=== PATIENT | male | born 1945 | race Caucasian/White ===

== ENCOUNTER 2023-03-16 06:56 | Inpatient (IN) | payer MEDICARE, BC ==
[2023-03-11 14:31] LABS: BASOPHILS # (AUTO) 0.1 X10'3 (0-0.2); BASOPHILS % (AUTO) 0.6 % (0-1); EOSINOPHILS # (AUTO) 0.1 X10'3 (0-0.9); LYMPHOCYTES # (AUTO) 2.1 X10'3 (1.1-4.8); LYMPHOCYTES % (AUTO) 23.3 % (21-51); MEAN CORPUSCULAR HGB CONC 34.3 g/dL (33.0-36.5); MEAN CORPUSCULAR VOLUME 96.1 FL (78-98); MEAN PLATELET VOLUME 8.1 FL (7.4-10.4); MONOCYTES # (AUTO) 0.8 X10'3 (0-0.9); MONOCYTES % (AUTO) 8.3 % (2-12); NEUTROPHILS # (AUTO) 6.1 X10'3 (1.8-7.7); NEUTROPHILS % (AUTO) 66.8 % (42-75); PRE OP HEMATOCRIT 41.9 % (42.0-52.0); PRE OP HEMOGLOBIN 14.4 g/dL (14.0-17.9); PRE OP PLATELET COUNT 234 X10'3 (140-440); PRE OP WHITE BLOOD COUNT 9.1 10'3 (4.8-10.8); RED BLOOD COUNT 4.36 X10'6 (4.70-6.10); RED CELL DISTRIBUTION WIDTH 14.1 % (11.5-14.5)
[2023-03-11 14:42] LABS: ALBUMIN 3.3 G/DL (3.4-5.0); ALKALINE PHOSPHATASE 71 IU/L (46-116); BLOOD UREA NITROGEN 18 MG/DL (7-18); BUN/CREATININE RATIO 13.1 (10.0-20.0); CALCIUM 8.7 MG/DL (8.5-10.1); CHLORIDE 105 MMOL/L (99-107); CREATININE 1.37 MG/DL (0.60-1.10); PRE OP ALT 11 U/L (30-65); PRE OP ANION GAP 5 (8-16); PRE OP AST 24 U/L (10-37); PRE OP BILIRUB, TOTAL 0.6 MG/DL (0.0-1.0); PRE OP GLUCOSE 88 MG/DL (70-104); PRE OP POTASSIUM 4.1 MMOL/L (3.4-5.1); PRE OP SODIUM 140 MMOL/L (135-145); TOTAL CARBON DIOXIDE 30.2 MMOL/L (24-32); TOTAL PROTEIN 6.5 G/DL (6.4-8.2); eGFR 51 ML/MIN
[~2023-03-16] VITALS: Ht 175.3 cm; Wt 86.3 kg
[2023-03-16] VITALS (21 sets, daily range): BP systolic 94–131; BP diastolic 53–72; PULSE 52–100; RESP 13–18; TEMP 98–98.4; O2SAT 91–98
[~2023-03-16 06:56] MED LIST: ASCO-139 PO; ASPI81TA52 PO; ATOR10TA87 PO; CITA20TA28 PO; GING550C4; NAPR220T67 PO; OMEP20CA15 PO; ZOLP5TAB8 PO
[2023-03-16] MEDS ORDERED: tranexamic acid 650mg tablet PO ONE (07:15)
[2023-03-16] MEDS ORDERED: ringers solution, lacted 1,000 ML IV SCH ×2 (07:15→07:25)
[2023-03-16] MEDS ORDERED: famotidine 20mg tablet PO ONE (07:15)
[2023-03-16] MEDS ORDERED: vancomycin 1,500 MG in NS 300ml IV soln IV ONE (07:15)
[2023-03-16] MEDS ORDERED: ondansetron/PF 4mg/2ml inj IV PRN ×2 (07:25→11:30)
[2023-03-16] MEDS ORDERED: morphine 4 MG/ML inj SYRINge IV PRN (07:25)
[2023-03-16] MEDS ORDERED: ROPIVAcaine 0.2% (10 MG/5 ML) BOLUS INJECTION INTERSCALE PRN (07:25)
[2023-03-16] MEDS ORDERED: hydrALAZINE 20mg/ml inj. IV PRN (07:25)
[2023-03-16] MEDS ORDERED: labetalol 20mg/4ml (5mg/ml) syringe IV PRN (07:25)
[2023-03-16] MEDS ORDERED: ROPIVAcaine 0.2%/PF PUMP/bolus 545 ML INTERSCALE SCH (07:25)
[2023-03-16] MEDS ORDERED: fentaNYL/PF 50MCG/1 ML 2ML syringe IV PRN ×2 (07:25)
[2023-03-16] MEDS ORDERED: morphine 2 MG/ML inj. syringe IV PRN (07:25)
[2023-03-16] MEDS ORDERED: cefazolin 2gm/D5W 100mL 100 ML IV ONE (07:30)
--- NOTE | 2023-03-16 08:30 | NUR ---
PT STATED HE BATHED THE LAST 5 DAYS AND USED HIS BACTROBAN PER TOTAL JOINT PROTOCOL, READ HIS JOINT REPLACEMENT BOOKLET AND DENIED ANY DECREASED SENSATION TO LEFT ARM, RADIAL PULSE 2(+) PALPATION. Addendum: 03/16/23 at 1335 by Elizabeth Richards RN Amended: Links added.
[2023-03-16] MEDS ORDERED: ROPIVAcaine 0.5% (5mg/ml) 30ml vial IJ ONE (09:00)
[2023-03-16] MEDS ORDERED: propofol inj 20 ML IV ONE (09:23)
[2023-03-16] MEDS ORDERED: midazolam 1 mg/ML 2ml injection ONE (09:23)
[2023-03-16] MEDS ORDERED: fentaNYL/PF 50MCG/1 ML 2ML syringe ONE (09:23)
[2023-03-16] MEDS ORDERED: ondansetron/PF 4mg/2ml inj ONE (09:24)
[2023-03-16] MEDS ORDERED: ROPIVAcaine 0.5% (5mg/ml) 30ml vial ONE ×2 (09:24→10:33)
[2023-03-16] MEDS ORDERED: LIDOcaine 2% (20mg/ml) 5ml vial ONE (09:24)
[2023-03-16] MEDS ORDERED: sevoflurane 250ml liquid IH ONE (09:25)
[2023-03-16] MEDS ORDERED: dexamethasone sod phosphate 10mg/ml inj ONE (09:25)
[2023-03-16] MEDS ORDERED: ePHEDrine 50MG/ML INJ. ONE (09:25)
--- NOTE | 2023-03-16 11:25 | NUR ---
Received from OR via BED, accompanied by Anesthesiologist and report given by Anesthesiologist. PATIENT WAKING UP, NO S/S OF PAIN, V/S WNL, SCD ON, 18G TO RUE, drsg to LEFT shoulder-CDI with SLING
[2023-03-16] MEDS ORDERED: HYDROmorphone inj. 0.5 MG/0.5 ML DISP.SYRIN IV PRN (11:30)
[2023-03-16] MEDS ORDERED: naloxone 0.4 mg/ml inj IV PRN (11:30)
[2023-03-16] MEDS ORDERED: acetaminophen 325mg tablet PO PRN (11:30)
[2023-03-16] MEDS ORDERED: oxyCODONE IR 5mg (immed. release) tablet PO PRN ×2 (11:30)
[2023-03-16] MEDS ORDERED: bisacodyl 10mg suppository rectal RC PRN (11:30)
[2023-03-16] MEDS: potassium cl 20mEq in 1/2 NS 1,000 ML IV SCH ×2 (11:30→21:29)
[2023-03-16] MEDS ORDERED: magnesium hydroxide 30ml (MOM) UD suspension PO PRN (11:30)
[2023-03-16] MEDS ORDERED: diphenhydrAMINE 25mg capsule PO PRN ×2 (11:30)
[2023-03-16] MEDS ORDERED: HYDROmorphone 1 mg/ml syringe IV PRN (11:30)
[2023-03-16] MEDS ORDERED: zolpidem 5mg tablet PO PRN (11:30)
[2023-03-16] MEDS ORDERED: HYDROcodone/acetaminophen 10/325mg tab PO PRN ×2 (11:30)
--- NOTE | 2023-03-16 16:05 | NUR ---
PATIENT A&OX4, DENIES PAIN, V/S WNL,SCD ON, 18G TO RUE, drsg to LEFT shoulder-CDI with SLING ON. PATIENT TAKEN TO 4021B WITH ALL BELONGINGS AND HOOKED UP TO MONITORS IN ROOM AND REPORT GIVEN TO GETTER WELDER WHO HAS TAKEN OVER PATIENT CARE. ON Q AT 2ML/HR.
--- NOTE | 2023-03-16 16:10 | NUR ---
Patient in room [facility]TH[facility] 4021. I have received report from Mina ESCOBAR and had the opportunity to ask questions and assume patient care.
[2023-03-16] MEDS: ceFAZolin/D5W- 1GM premix 50 ML IV SCH (17:08)
[2023-03-16] MEDS: acetaminophen 325mg tablet PO SCH ×2 (17:13→21:34)
--- NOTE | 2023-03-16 18:25 | NUR ---
Problems reprioritized. Patient report given, questions answered & plan of care reviewed with Paula ESCOBAR.
--- NOTE | 2023-03-16 18:35 | NUR ---
Patient in room [facility]TH[facility] 4021. I have received report from Mookie ESCOBAR and had the opportunity to ask questions and assume patient care.
[2023-03-16] MEDS ORDERED: vancomycin/NS 1 GM ADD-VANTAGE 250 ML IV SCH (20:00)
[2023-03-16] MEDS ORDERED: sennosides 8.6mg tablet PO SCH (21:00)
[2023-03-17] MEDS: ceFAZolin/D5W- 1GM premix 50 ML IV SCH (01:07)
[2023-03-17] MEDS: acetaminophen 325mg tablet PO SCH ×2 (01:10→10:49)
[2023-03-17 02:00] VITALS: BP 104/61; PULSE 71; RESP 16; TEMP 97.5; O2SAT 92; O2SAT 98
[2023-03-17] MEDS: potassium cl 20mEq in 1/2 NS 1,000 ML IV SCH ×2 (03:30→05:16)
[2023-03-17 06:00] VITALS: BP 108/57; PULSE 58; RESP 18; TEMP 97.5; O2SAT 97
--- NOTE | 2023-03-17 06:30 | NUR ---
Problems reprioritized. Patient report given, questions answered & plan of care reviewed with Tony ESCOBAR.
[2023-03-17 07:10] LABS: BASOPHILS % (AUTO) 0.2 % (0-1); EOSINOPHILS % (AUTO) 0 % (0-6); HEMATOCRIT 37.9 % (42.0-52.0); HEMOGLOBIN 12.9 g/dl (14.0-17.9); LYMPHOCYTES # (AUTO) 1.3 X10'3 (1.1-4.8); LYMPHOCYTES % (AUTO) 9.1 % (21-51); MEAN CORPUSCULAR HEMOGLOBIN 32.9 PG (27.0-31.0); MEAN CORPUSCULAR VOLUME 96.5 FL (78-98); MEAN PLATELET VOLUME 8.5 FL (7.4-10.4); MONOCYTES # (AUTO) 0.9 X10'3 (0-0.9); MONOCYTES % (AUTO) 6.4 % (2-12); NEUTROPHILS # (AUTO) 11.7 X10'3 (1.8-7.7); NEUTROPHILS % (AUTO) 84.3 % (42-75); PLATELET COUNT 192 X10'3 (140-440); RED BLOOD COUNT 3.92 X10'6 (4.70-6.10); WHITE BLOOD COUNT 13.8 X10'3 (4.5-11.0)
[2023-03-17 07:11] LABS: ANION GAP 8 (8-16); CHLORIDE 106 MMOL/L (99-107); POTASSIUM 4.1 MMOL/L (3.5-5.1); SODIUM 139 MMOL/L (135-145)
--- NOTE | 2023-03-17 07:28 | NUR ---
Patient in room [facility]TH[facility] 4021. I have received report from IVANIA ESCOBAR and had the opportunity to ask questions and assume patient care.
[2023-03-17 08:00] VITALS: RESP 15; O2SAT 93
[2023-03-17] MEDS ORDERED: atorvastatin 10mg tablet PO SCH (08:00)
[2023-03-17] MEDS ORDERED: citalopram 20mg tablet PO SCH (08:00)
[2023-03-17] MEDS ORDERED: ascorbic acid 500mg tablet PO SCH (08:00)
[2023-03-17] MEDS ORDERED: pantoprazole 40mg Tablet.DR PO SCH (08:00)
[2023-03-17] MEDS ORDERED: aspirin 325mg tablet PO SCH (08:30)
[2023-03-17 10:00] VITALS: BP 120/67; PULSE 66; RESP 20; TEMP 97.7; O2SAT 93
--- NOTE | 2023-03-17 13:09 | NUR ---
pt is stable for dc, all dc info went over and signed, iv is dc canula intact, all belongings taken with pt, dressing changed per md, no meds in pharmacy, on q ball is full and pt educated on all dc info. pt was wheeled down to the lobby and left with daughter.
--- NOTE | 2023-03-17 16:41 | NUR ---
Joint surgery consult: Pt s/p L shoulder surgery this admit per EMR. Pt discharged prior to RD visit; written high protein diet ed w/ RD contact information mailed to home address provided in EMR. Addendum: 03/17/23 at [address] Amended: Links added.
[2023-03-18] MEDS ORDERED: acetaminophen 325mg tablet PO PRN (11:30)
== END 2023-03-17 12:42 | disposition home or self-care (01) | DRG 483 ==
LOC: PAS IN 06:56 → ORTHO 4S 16:05
PROVIDERS: ADMIT Orthopaedic Surgery; ATTEND Orthopaedic Surgery
PROC: 0LS40ZZ Reposition Left Upper Arm Tendon, Open Approach (ICD-10-PCS; 2023-03-16)
PROC: 3E0T3BZ Introduction of Anesthetic Agent into Peripheral Nerves and Plexi, Percutaneous Approach (ICD-10-PCS; 2023-03-16)
PROC: 0RRK00Z Replacement of Left Shoulder Joint with Reverse Ball and Socket Synthetic Substitute, Open Approach (ICD-10-PCS; principal; 2023-03-16 09:25)
DX: M19.012 Primary osteoarthritis, left shoulder (principal); M75.22 Bicipital tendinitis, left shoulder; M75.112 Incomplete rotator cuff tear or rupture of left shoulder, not specified as traumatic
CPT/HCPCS: 36415; 80051; 80053; 82948; 85025; 87081; 93005; A4615; G0378; J0690; J1100; J2250; J2405; J2704; J2795; J3010; J3370; J3480; J3490; J7120

== ENCOUNTER 2024-12-27 09:34 | Outpatient (CLI) | payer MEDICARE, BC ==
[~2024-12-27 09:34] MED LIST changes: -ASPI81TA52 PO; +CITA-178 PO; -CITA20TA28 PO; -GING550C4; +[UNRECOGNIZED DRUG - CODE]
--- NOTE | 2024-12-27 18:58 | RADIOLOGY REPORT ---
PROCEDURE: MR MRI C SPINE INDICATION: RADICULOPATHY, CERVICAL REGION EXAM DATE: 12/27/2024 09:36 AM COMPARISON: None TECHNIQUE: MRI cervical spine without intravenous contrast. FINDINGS: Limited by motion. Postsurgical changes C3-4. Grade 1 anterolisthesis of C2 on C3, C5 on C6, C6 on C7, and C7 on T1. T here are degenerative endplate changes with anterior osteophytes mid to lower cervical levels. Sella appears dilated. Abnormal cord signal at C3-4. There is no prevertebral soft tissue swelling. The visualized paraspinal soft tissues are otherwise unremarkable. The following axial levels are detailed below: C2-C3: Mild posterior disc osteophyte complex complicated by facet arthropathy associated with mod erate bilateral neural foraminal stenosis. No significant central canal stenosis. C3-C4: Moderate posterior disc osteophyte complex complicated by facet arthropathy associated with moderate to severe bilateral neural foraminal stenosis. No significant central canal stenosis. C4-C5: Moderate posterior disc osteophyte complex complicated by facet arthropathy associated with moderate to severe bilateral neural foraminal stenosis. Central canal measures 8 mm. C5-C6: Mild posterior disc osteophyte complex complicated by facet arthropathy associated with mild to moderate bilateral neural foraminal stenosis. No significant central canal stenosis. C6-C7: Mild posterior disc osteophyte complex complicated by facet arthropathy associated with mild to moderate bilateral neural foraminal stenosis. No significant central canal stenosis. C7-T1: Mild posterior disc osteophyte complex complicated by facet arthropathy associated with mild to moderate bilateral neural foraminal stenosis. No significant central canal stenosis. IMPRESSION: 1. Postsurgical changes C3-4. Multilevel degenerative disease. Abnormal cord signal at C3-4 consiste nt with myelomalacia. 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 Neural foraminal stenosis as above. 2. Sella appears dilated. Consider further evaluation with MRI of the brain. HS:Y
== END 2024-12-27 23:59 | disposition home or self-care (01) ==
LOC: MRI02 09:34
PROVIDERS: ATTEND Orthopaedic Surgery
DX: M50.11 Cervical disc disorder with radiculopathy, high cervical region (principal); M25.512 Pain in left shoulder; Z96.612 Presence of left artificial shoulder joint; R20.0 Anesthesia of skin; M43.12 Spondylolisthesis, cervical region; M25.78 Osteophyte, vertebrae; M48.02 Spinal stenosis, cervical region
CPT/HCPCS: 72141